=== PATIENT | female | born 1950 | race Caucasian/White ===

== ENCOUNTER 2021-05-24 11:28 | Day surgery (SDC) | payer MEDICARE ==
[~2021-05-24 11:28] MED LIST: Lactated Ringers 1,000 ML IV ONE; Lactated Ringers 1,000 ML IV SCH
[2021-05-24] MEDS ORDERED: Versed 2 MG/2 ML Injection ONE (15:44)
[2021-05-24] MEDS ORDERED: DIPRIVAN 200 MG/20 ML IV ONE (15:44)
[2021-05-24] MEDS ORDERED: Sodium Chloride 0.9% 10 ML FLUSH Syringe PORT FLUSH PRN (16:57)
[2021-05-24 17:03] VITALS: BP 175/77; PULSE 84; O2SAT 96
--- NOTE | 2021-05-25 13:09 | OP ---
PROCEDURE DATE/TIME: 05/24/2021 1545 PREOPERATIVE DIAGNOSIS: History of anal cancer and history of colon cancer. POSTOPERATIVE DIAGNOSES: 1) Patent ileocolonic anastomosis with mild soluble granulation tissue at the anastomosis. 2) The patient is status post anal canal radiation with post-radiation mild changes of the anus. No notable masses. PROCEDURE: Colonoscopy with biopsy. PROCEDURE PERFORMED BY: Aziza Santiago M.D. COMPLICATIONS: None. ESTIMATED BLOOD LOSS: Minimal. ANESTHESIA: MAC. SPECIMEN: Anastomotic soluble granulation tissue. PLAN: Colonoscopy in one year. HISTORY: This is a 70-year-old female who presents for colonoscopy. She has a history of anal cancer status post radiation and chemotherapy. She also has a history of colon cancer status post partial colectomy. Risks, benefits, alternatives, H&P and consent have been reviewed with her, confirmed and all questions answered. DESCRIPTION OF PROCEDURE: She was brought to the endoscopy suite and laid in left lateral decubitus position. A complete time out was performed. First a rectal exam was done. The patient was noted to have slight amount of scarring as would be expected status post having anal cancer and then having her treatment. I do not feel any masses. I do not see any masses upon inserting the scope. She does have less pliability of her anal canal as would be expected and she does leak stool throughout the procedure. We inserted the scope and gently advanced this to her ileocolonic anastomosis. The anastomosis appeared to be very patent, healthy and intact. There is some suture material as well as some granulation tissue that is very visible. The tissue is mildly friable here where she has formed granulation tissue. I took a biopsy of this and sent this to pathology. It is hemostatic. This does not look malignant. I see no signs of recurrence. The scope is then carefully withdrawn. It appears that she has had her entire right colon removed. The remainder of the colon appeared to be very healthy. I did not find any polyps, tumors or concerning finding. Her prep was satisfactory. In the rectum, we re-inspected the full rectum and anal canal and I do not see anything concerning here either and then the scope was completely removed. Due to the patient's history of both anal canal cancer and colon cancer, I would recommend for her to have another colonoscopy in approximately one year. She is going to follow up with me as an outpatient for her biopsy results and then we will go from there.
== END 2021-05-24 17:19 | disposition home or self-care (01) ==
LOC: SDC 11:28
PROVIDERS: ATTEND Surgery
DX: Z08 Encounter for follow-up examination after completed treatment for malignant neoplasm (principal); D12.6 Benign neoplasm of colon, unspecified; Z85.038 Personal history of other malignant neoplasm of large intestine; Z85.048 Personal history of other malignant neoplasm of rectum, rectosigmoid junction, and anus; E11.9 Type 2 diabetes mellitus without complications
CPT/HCPCS: 82947; 88305; J1642; J2250; J2704

== ENCOUNTER 2021-06-21 13:07 | Day surgery (SDC) | payer MEDICARE ==
[2021-06-21] MEDS ORDERED: Lactated Ringers 1,000 ML IV ONE (13:56)
[2021-06-21] MEDS ORDERED: Lactated Ringers 1,000 ML IV SCH (14:00)
[2021-06-21] MEDS ORDERED: XYLOCAINE 1% HCL 20 ML MDV ONE (14:02)
[2021-06-21] MEDS ORDERED: DIPRIVAN 200 MG/20 ML IV ONE (18:02)
[2021-06-21] MEDS ORDERED: SUBLIMAZE 100 MCG/2 ML ONE (18:02)
[2021-06-21] MEDS ORDERED: Zofran 4 MG/2 ML VIAL ONE (18:02)
[2021-06-21] MEDS ORDERED: Versed 2 MG/2 ML Injection ONE (18:02)
[2021-06-21] MEDS ORDERED: Decadron 4 MG INJ ONE (18:02)
[2021-06-21] MEDS ORDERED: Xylocaine-Mpf 2% 5 Ml Vial ONE (18:02)
[2021-06-21 19:42] VITALS: BP 156/81; PULSE 80; O2SAT 92
--- NOTE | 2021-06-22 09:06 | OP ---
SURGERY DATE/TIME: 06/21/2021 180 PREOPERATIVE DIAGNOSIS: Undesired port, treatment is complete. POSTOPERATIVE DIAGNOSIS: Undesired port, treatment is complete. PROCEDURE: Port removal. SURGEON: Aziza Santiago M.D. ANESTHESIA: MAC. COMPLICATIONS: None. ESTIMATED BLOOD LOSS: Minimal. SPECIMENS: None. INDICATION: This is a 70-year-old female who has had anal cancer as well as colon cancer. She has completed her treatment. She would like for her port to be removed. She is not having any other complications with her port. Risks, benefits, alternatives reviewed with her. H&P and consent reviewed with her, all confirmed preoperatively. DESCRIPTION OF PROCEDURE: She is then brought back to the operative suite. Anesthesia induced. Prepped and draped in the usual sterile fashion. A complete time out was performed. First, the patient was given a local at the prior incision. We then opened the prior incision site with a 15 blade and dissected down to the port with Bovie cautery. The port was fully removed. Sutures removed. We pulled out the port intact and held pressure. I did inspect the port and make sure this was fully intact and everything looked satisfactory here. There are no concerns. The pressure was held for two minutes. We then withdrew pressure. There was no bleeding. I placed a figure-of-8 suture with 3-0 Vicryl here. Irrigated, closed with buried 3-0 Vicryl, 4-0 running subcuticular Monocryl. Sterile dressing. The patient tolerated the procedure well. No immediate complications. I have discussed the instructions with her family and she is going to following up with me as an outpatient.
== END 2021-06-21 19:50 | disposition home or self-care (01) ==
LOC: SDC 13:07
PROVIDERS: ATTEND Surgery
DX: Z45.2 Encounter for adjustment and management of vascular access device (principal); E11.9 Type 2 diabetes mellitus without complications; Z85.038 Personal history of other malignant neoplasm of large intestine; Z85.048 Personal history of other malignant neoplasm of rectum, rectosigmoid junction, and anus
CPT/HCPCS: 82947; 99100; J1100; J2250; J2405; J2704; J3010